=== PATIENT | female | born 1965 | race Caucasian/White ===

== ENCOUNTER → 2022-04-15 | Outpatient (CLI) | payer BC ==
--- NOTE | 2022-04-16 12:06 | MM ---
Reason for Exam: Screening (asymptomatic). Last mammogram was performed 6 year(s) and 1 month(s) ago. Patient History: Menarche at age 10. First Full-Term at age 28. Late child-bearing (after 28). Postmenopausal. Estrogen, ending at age 53. Progesterone, ending at age 53. 2008, Cyst Aspiration on the Right side. Risk Values: Hetal 5 year model risk: 1.8%. NCI Lifetime model risk: 10.5%. Prior Study Comparison: 04/24/2011 Bilateral Diagnostic Mammogram, [facility]. 03/07/2016 Bilateral Screening Mammogram, [facility]. 04/03/2016 Right Diagnostic Mammogram, [facility]. Tissue Density: The breast tissue is heterogeneously dense. This may lower the sensitivity of mammography. Findings: Analyzed By CAD. There are regional central tiny round calcifications in the right breast redemonstrated. Stable 4 mm round mass in the upper outer aspect right breast. There is no suspicious new group of microcalcifications or new suspicious mass in either breast. Overall Assessment: Benign, BI-RAD 2 Management: Screening Mammogram of both breasts in 1 year. Some advise bilateral breast ultrasound surveillance in patients with background dense tissue. A clinical breast exam by your physician is recommended on an annual basis and results should be correlated with mammographic findings. Electronically signed and approved by: Jay Jay Wyman M.D.
== END | disposition home or self-care (01) ==
LOC: RADMAMWWP 07:18
PROVIDERS: ATTEND Obstetrics & Gynecology
DX: Z12.31 Encounter for screening mammogram for malignant neoplasm of breast (principal); Z78.0 Asymptomatic menopausal state
CPT/HCPCS: 77067